=== PATIENT | female | born 1935 | race Caucasian/White ===

== ENCOUNTER → 2017-03-19 | Outpatient (CLI) | payer MEDICARE | END | disposition home or self-care (01) | LOC: CFH 11:59 → EDSTATUS 13:00 | PROVIDERS: ATTEND Internal Medicine Critical Care Medicine | DX: I25.10 Atherosclerotic heart disease of native coronary artery without angina pectoris (principal); I70.0 Atherosclerosis of aorta; R91.8 Other nonspecific abnormal finding of lung field | CPT/HCPCS: 71250 ==

== ENCOUNTER → 2017-08-31 | Outpatient (CLI) | payer MEDICARE | END | disposition home or self-care (01) | LOC: CFH 12:36 | PROVIDERS: ATTEND Psychiatry & Neurology Neurology | DX: G31.89 Other specified degenerative diseases of nervous system (principal); I67.89 Other cerebrovascular disease | CPT/HCPCS: 70551 ==

== ENCOUNTER 2018-03-30 19:24 | Emergency (ER) | payer MEDICARE ==
[~2018-03-30] VITALS: Ht 154.9 cm; Wt 48.5 kg
[2018-03-30] MEDS ORDERED: ALBUTEROL SULFATE 2.5 MG/3 ML ONE (19:44)
[2018-03-30 20:05] LABS: BASOPHILS # (AUTO) 0.01 x10^3/uL (0-0.1); BASOPHILS % (AUTO) 0 % (0-1); EOSINOPHILS # (AUTO) 0.76 x10^3/uL (0-0.4); EOSINOPHILS % (AUTO) 9 % (1-7); LYMPHOCYTES # (AUTO) 0.91 x10^3/uL (1-3.4); LYMPHOCYTES % (AUTO) 10 % (22-44); MD NO; MEAN CORPUSCULAR HEMOGLOBIN 30.2 pg (27.0-34.8); MEAN CORPUSCULAR HGB CONC 33.9 g/dL (32.4-35.8); MEAN CORPUSCULAR VOLUME 89.2 fL (80-100); MEAN PLATELET VOLUME 9.1 fL (7.4-10.4); MONOCYTES # (AUTO) 0.56 x10^3/uL (0.2-0.8); MONOCYTES % (AUTO) 7 % (2-9); NEUTROPHILS % (AUTO) 74 % (42-75); PLATELET COUNT 322 x10^3/uL (130-400); RED BLOOD COUNT 5.48 x10^6/uL (3.82-5.3); RED CELL DISTRIBUTION WIDTH 13.7 % (9.6-15.2)
[2018-03-30 20:13] LABS: ANION GAP 7 mmol/L (5-15); CALCIUM 9.4 mg/dL (8.5-10.1); CHLORIDE 110 mmol/L (98-107)
[2018-03-30 20:14] LABS: ALANINE AMINOTRANSFERASE 22 U/L (12-78); ALBUMIN 3.9 g/dL (3.4-5.0)
[2018-03-30 20:17] LABS: ALKALINE PHOSPHATASE 147 U/L (45-117); BILIRUBIN,TOTAL 0.3 mg/dL (0.2-1.0); TOTAL PROTEIN 8.1 g/dL (6.4-8.2); TROPONIN I < 0.015 ng/mL (0.000-0.045)
[2018-03-30 21:35] VITALS: BP 176/80
== END 2018-03-30 21:56 | disposition home or self-care (01) ==
LOC: ED 21:49
DX: J45.31 Mild persistent asthma with (acute) exacerbation (principal)
CPT/HCPCS: 36415; 71046; 80053; 83880; 84484; 85025; 93005; 94640; 99285

== ENCOUNTER 2018-11-27 20:27 | Emergency (ER) | payer MEDICARE ==
[~2018-11-27] VITALS: Ht 154.9 cm; Wt 49.0 kg
--- NOTE | 2018-11-27 21:06 | NUR ---
ASTHMA EXACERBATION X 4 DAYS WORSE TODAY. MONITORS APPLIED, SIDERAILS UP X2, CALL LIGHT WITHIN REACH.
[2018-11-27] MEDS ORDERED: OMEP-110 PO (21:25)
[2018-11-27] MEDS ORDERED: ENAL10TA PO (21:25)
[2018-11-27] MEDS ORDERED: ALBU0.63 NEB (21:25)
[2018-11-27] MEDS ORDERED: FLUT9.9S NAS (21:25)
[2018-11-27] MEDS ORDERED: ALBU8.5H8 INH (21:25)
[2018-11-27] MEDS ORDERED: BUDE10.2 INH (21:25)
[2018-11-27] MEDS ORDERED: ALBUTEROL/IPRATROPIUM 2.5MG/0.5MG, 3 ML ONE (21:30)
[2018-11-27] MEDS ORDERED: ALBUTEROL/IPRATROPIUM 2.5MG/0.5MG, 3 ML NPPB ONE (21:30)
[2018-11-27 21:32] LABS: BASOPHILS # (AUTO) 0.02 x10^3/uL (0-0.1); BASOPHILS % (AUTO) 0 % (0-1); EOSINOPHILS # (AUTO) 0.03 x10^3/uL (0-0.4); EOSINOPHILS % (AUTO) 0 % (1-7); LYMPHOCYTES # (AUTO) 0.52 x10^3/uL (1-3.4); LYMPHOCYTES % (AUTO) 7 % (22-44); MD NO; MEAN CORPUSCULAR HEMOGLOBIN 30.2 pg (27.0-34.8); MEAN CORPUSCULAR HGB CONC 33.8 g/dL (32.4-35.8); MEAN CORPUSCULAR VOLUME 89.2 fL (80-100); MEAN PLATELET VOLUME 8.8 fL (7.4-10.4); MONOCYTES # (AUTO) 0.16 x10^3/uL (0.2-0.8); MONOCYTES % (AUTO) 2 % (2-9); NEUTROPHILS % (AUTO) 91 % (42-75); PLATELET COUNT 278 x10^3/uL (130-400); RED BLOOD COUNT 5.04 x10^6/uL (3.82-5.3); RED CELL DISTRIBUTION WIDTH 13.5 % (9.6-15.2)
[2018-11-27 21:33] LABS: RAPID INFLUENZA A Negative (Negative); RAPID INFLUENZA B Negative (Negative)
[2018-11-27 21:45] LABS: ALBUMIN 3.9 g/dL (3.4-5.0); ANION GAP 7 mmol/L (5-15); CALCIUM 9.4 mg/dL (8.5-10.1); CHLORIDE 107 mmol/L (98-107); CREATININE 1.45 mg/dL (0.55-1.02)
[2018-11-27 21:48] LABS: TROPONIN I < 0.015 ng/mL (0.000-0.045)
--- NOTE | 2018-11-27 21:57 | NUR ---
URINE SAMPLE TAKEN TO LAB
[2018-11-27 22:06] LABS: MICROSCOPIC AUTO
[2018-11-27 22:08] LABS: CULTURE INDICATED? YES
[2018-11-27] MEDS ORDERED: BUDESONIDE 0.5 MG/2 ML INHA INH ONE (22:30)
[2018-11-27] MEDS ORDERED: ALBUTEROL SULFATE 2.5MG/0.5ML NPPB ONE (22:30)
[2018-11-27] MEDS ORDERED: ALBUTEROL SULFATE 2.5MG/0.5ML ONE (22:39)
[2018-11-27] MEDS ORDERED: BUDESONIDE 0.5 MG/2 ML INHA ONE (22:39)
[2018-11-27 23:15] VITALS: BP 124/79
[2018-11-30] MEDS ORDERED: PRED5TAB PO (14:03)
[2018-11-30] MEDS ORDERED: CEFU500T50 PO (14:03)
[2018-11-30] MEDS ORDERED: IPRA3AMP30 NPPB (14:03)
== END 2018-11-27 23:36 | disposition home or self-care (01) ==
LOC: ED 23:27
DX: J45.51 Severe persistent asthma with (acute) exacerbation (principal)
CPT/HCPCS: 36415; 71046; 80048; 81001; 82040; 84484; 85025; 87077; 87086; 87186; 87400; 93005; 94640; 99284; J7512; J7611; J7620; J7626

== ENCOUNTER 2019-02-20 09:04 | Inpatient (IN) | payer MEDICARE ==
[~2019-02-20] VITALS: Ht 154.9 cm; Wt 51.0 kg
[~2019-02-20 09:04] MED LIST: ALBU0.63 NEB; ALBU8.5H8 INH; BUDE10.2 INH; CEFU500T50 PO; ENAL10TA PO; FLUT9.9S NAS; IPRA3AMP30 NPPB; OMEP-110 PO; PRED5TAB PO
--- NOTE | 2019-02-20 09:15 | NUR ---
PT ARRIVED TO ROOM 16 VIA WHEELCHAIR FROM TRIAGE. PT C/O INTERMITTENT SOB SINCE YESTERDAY, RECENT ADMIT FOR ASTHMA EXAC, + AUDIBLE EXPIR WHEEZING NOTED, +STEROIDS. PT STATES SHE WAS DISCAHRGED FROM HOSPITAL IN NOVEMBER ON NEW MEDICATIONS AND STATES SHE HAS BEEN FEELING DIZZY LATELY. PT AAO X 4, VSS, DRESSED IN GOWN AND ATTACHED TO MONITOR. RESTING COMFORTABLY ON GURNEY, ROOM AIR BUT AUDIBLE EXPIRATORY WHEEZING. CALL LIGHT AND BELONGINGS WITHIN REACH, SIDERAILS X [address], FALL PRECUATIONS IN PLACE.
[2019-02-20 09:33] LABS: BASOPHILS # (AUTO) 0.03 x10^3/uL (0-0.1); BASOPHILS % (AUTO) 0 % (0-1); EOSINOPHILS # (AUTO) 1.08 x10^3/uL (0-0.4); EOSINOPHILS % (AUTO) 12 % (1-7); LYMPHOCYTES # (AUTO) 0.82 x10^3/uL (1-3.4); LYMPHOCYTES % (AUTO) 9 % (22-44); MD NO; MEAN CORPUSCULAR HEMOGLOBIN 30.4 pg (27.0-34.8); MEAN CORPUSCULAR HGB CONC 33.3 g/dL (32.4-35.8); MEAN CORPUSCULAR VOLUME 91.3 fL (80-100); MEAN PLATELET VOLUME 8.7 fL (7.4-10.4); MONOCYTES # (AUTO) 0.49 x10^3/uL (0.2-0.8); MONOCYTES % (AUTO) 6 % (2-9); NEUTROPHILS # (AUTO) 6.43 x10^3/uL (1.8-6.8); NEUTROPHILS % (AUTO) 73 % (42-75); PLATELET COUNT 288 x10^3/uL (130-400); RED BLOOD COUNT 5.12 x10^6/uL (3.82-5.3); RED CELL DISTRIBUTION WIDTH 13.9 % (9.6-15.2)
[2019-02-20 09:45] LABS: ALBUMIN 3.8 g/dL (3.4-5.0); ANION GAP 4 mmol/L (5-15); CALCIUM 9.3 mg/dL (8.5-10.1); CHLORIDE 111 mmol/L (98-107); CREATININE 0.97 mg/dL (0.55-1.02)
[2019-02-20] MEDS ORDERED: ALBUTEROL/IPRATROPIUM 2.5MG/0.5MG, 3 ML ONE (09:48)
--- NOTE | 2019-02-20 09:55 | NUR ---
RT AT BEDSIDE FOR BREATHING TX.
[2019-02-20] MEDS ORDERED: ALBUTEROL/IPRATROPIUM 2.5MG/0.5MG, 3 ML NPPB ONE (10:00)
--- NOTE | 2019-02-20 10:18 | NUR ---
PT AMBULATED TO BATHROOM WITH ASSISTANCE. PT SOB WITH EXERTION WITH EXTENDED EXPIRATORY PHASE AND [place]. PT WOB IMPROVED AFTER RESTING IN GURNEY
--- NOTE | 2019-02-20 10:20 | NUR ---
PT TO CT.
[2019-02-20] MEDS ORDERED: OMNIPAQUE 350 MG/ML, 75ML BOTTLE ONE (10:38)
--- NOTE | 2019-02-20 10:51 | NUR ---
PT SLEEPING ON GURNEY, CALL LIGHT WITHIN REACH
[2019-02-20] MEDS ORDERED: BACITRACIN ZINC OINT 500U/GM, 0.9 GM ONE (10:58)
[2019-02-20] MEDS ORDERED: CEFTRIAXONE PMX 1GM/50ML 50 ML IV ONE (11:30)
[2019-02-20] MEDS ORDERED: AZITHROMYCIN 500 MG in SODIUM CHLORIDE 0.9% 250 ML IV ONE (11:30)
[2019-02-20] MEDS ORDERED: CEFTRIAXONE PMX 1GM/50ML 50 ML ONE (11:33)
--- NOTE | 2019-02-20 11:40 | NUR ---
BLOOD CULTURES X 2 DRAWN BY LAB AND [place] PLACED ON PT. ABX ADMINISTERED PER NOV.
--- NOTE | 2019-02-20 12:04 | NUR ---
PT RESTING IN [facility]. ALL NEEDS MET.
--- NOTE | 2019-02-20 12:16 | NUR ---
REPORT GIVEN TO FLOOR RN. PT TO TRANSFER TO INPATIENT ROOM WITH CHART AND ALL BELONGINGS.
[2019-02-20] MEDS ORDERED: ONDANSETRON 2MG/ML, 2ML IVPush PRN (12:30)
[2019-02-20] MEDS ORDERED: ACETAMINOPHEN 325 MG TABLET PO PRN (12:30)
[2019-02-20] MEDS ORDERED: ENALAPRILAT 1.25 MG/ML, 2ML IVPush PRN (12:30)
[2019-02-20] MEDS ORDERED: ALBUTEROL/IPRATROPIUM 2.5MG/0.5MG, 3 ML NPPB SCH (12:30)
[2019-02-20] MEDS ORDERED: KETOROLAC 30 MG/1 ML IV PRN (12:30)
[2019-02-20 13:23] LABS: ALANINE AMINOTRANSFERASE 27 U/L (12-78)
[2019-02-20 13:24] LABS: ALKALINE PHOSPHATASE 135 U/L (45-117); BILIRUBIN,TOTAL 0.4 mg/dL (0.2-1.0); TOTAL PROTEIN 7.6 g/dL (6.4-8.2)
[2019-02-20 13:26] LABS: BILIRUBIN, DIRECT < 0.1 mg/dL (0.1-0.2); BILIRUBIN,INDIRECT 0.3 mg/dL (0.0-2.0)
[2019-02-20] MEDS: ALBUTEROL/IPRATROPIUM 2.5MG/0.5MG, 3 ML NPPB SCH ×3 (14:40→22:30)
[2019-02-20] MEDS: AMLODIPINE 2.5 MG TABLET PO SCH (15:46)
[2019-02-20 19:01] VITALS: BP 159/105
[2019-02-20 19:15] VITALS: BP 160/100
[2019-02-20] MEDS: hydrALAzine 20 MG/ML, 1ML IVPush PRN (19:23)
[2019-02-20 19:55] VITALS: BP 156/91
[2019-02-20] MEDS ORDERED: BUDESONIDE 0.5 MG/2 ML INHA NPPB SCH (21:00)
[2019-02-20] MEDS: ENALAPRIL 10 MG TABLET PO SCH (21:26)
[2019-02-20] MEDS: ENOXAPARIN 30 MG/0.3 ML SQ SCH (21:26)
[2019-02-20] MEDS: LACTULOSE 20 GM/30 ML UDC PO SCH (21:26)
[2019-02-20 22:15] VITALS: BP 107/66
[2019-02-21 01:21] VITALS: BP 113/72
[2019-02-21] MEDS: ALBUTEROL/IPRATROPIUM 2.5MG/0.5MG, 3 ML NPPB SCH ×5 (02:45→19:27)
[2019-02-21 05:09] LABS: BASOPHILS # (AUTO) 0.03 x10^3/uL (0-0.1); BASOPHILS % (AUTO) 0 % (0-1); EOSINOPHILS # (AUTO) 0.99 x10^3/uL (0-0.4); EOSINOPHILS % (AUTO) 12 % (1-7); LYMPHOCYTES # (AUTO) 1.13 x10^3/uL (1-3.4); LYMPHOCYTES % (AUTO) 14 % (22-44); MD NO; MEAN CORPUSCULAR HEMOGLOBIN 29.6 pg (27.0-34.8); MEAN CORPUSCULAR HGB CONC 32.7 g/dL (32.4-35.8); MEAN CORPUSCULAR VOLUME 90.4 fL (80-100); MEAN PLATELET VOLUME 8.6 fL (7.4-10.4); MONOCYTES % (AUTO) 6 % (2-9); NEUTROPHILS # (AUTO) 5.31 x10^3/uL (1.8-6.8); NEUTROPHILS % (AUTO) 67 % (42-75); PLATELET COUNT 253 x10^3/uL (130-400); RED BLOOD COUNT 4.92 x10^6/uL (3.82-5.3); RED CELL DISTRIBUTION WIDTH 13.8 % (9.6-15.2)
[2019-02-21 05:29] LABS: ANION GAP 8 mmol/L (5-15); CHLORIDE 108 mmol/L (98-107)
[2019-02-21 05:30] LABS: CREATININE 0.99 mg/dL (0.55-1.02)
[2019-02-21 06:44] VITALS: BP 121/72
[2019-02-21] MEDS: BUDESONIDE 0.5 MG/2 ML INHA NPPB SCH (07:05)
[2019-02-21] MEDS: LACTULOSE 20 GM/30 ML UDC PO SCH ×2 (08:34→20:48)
[2019-02-21] MEDS: AMLODIPINE 2.5 MG TABLET PO SCH (08:35)
[2019-02-21] MEDS: OMEPRAZOLE 20 MG CAPSULE.DR PO SCH (08:35)
[2019-02-21] MEDS: SENNA/DOCUSATE TABLET PO SCH (08:36)
[2019-02-21] MEDS: ENALAPRIL 10 MG TABLET PO SCH (08:36)
[2019-02-21] MEDS: ENOXAPARIN 30 MG/0.3 ML SQ SCH ×2 (08:37→20:48)
[2019-02-21] MEDS: FLUTICASONE NASAL SPRAY 16GM NAS SCH (10:18)
[2019-02-21] MEDS: CEFTRIAXONE PMX 1GM/50ML 50 ML IV SCH ×2 (11:21→12:25)
[2019-02-21] MEDS ORDERED: POLYETHYLENE GLYCOL 17 GM PACKET PO PRN (11:30)
[2019-02-21] MEDS: AZITHROMYCIN 500 MG in SODIUM CHLORIDE 0.9% 250 ML IV SCH (13:52)
[2019-02-21 15:28] VITALS: BP 103/67
[2019-02-21 18:36] VITALS: BP 129/78
[2019-02-22 00:22] VITALS: BP 126/70
[2019-02-22 07:06] VITALS: BP 138/79
[2019-02-22] MEDS: AMLODIPINE 2.5 MG TABLET PO SCH (08:46)
[2019-02-22] MEDS: OMEPRAZOLE 20 MG CAPSULE.DR PO SCH (08:46)
[2019-02-22] MEDS: ENOXAPARIN 30 MG/0.3 ML SQ SCH ×2 (08:46→20:15)
[2019-02-22] MEDS: FLUTICASONE NASAL SPRAY 16GM NAS SCH (08:46)
[2019-02-22] MEDS: LACTULOSE 20 GM/30 ML UDC PO SCH ×2 (08:47→21:00)
[2019-02-22] MEDS: SENNA/DOCUSATE TABLET PO SCH (08:47)
[2019-02-22] MEDS: BUDESONIDE 0.5 MG/2 ML INHA NPPB SCH (09:55)
[2019-02-22] MEDS: ALBUTEROL/IPRATROPIUM 2.5MG/0.5MG, 3 ML NPPB SCH ×3 (09:55→20:19)
[2019-02-22] MEDS: CEFTRIAXONE PMX 1GM/50ML 50 ML IV SCH (11:41)
[2019-02-22 13:19] VITALS: BP 128/65
[2019-02-22] MEDS: AZITHROMYCIN 500 MG in SODIUM CHLORIDE 0.9% 250 ML IV SCH (14:15)
[2019-02-22 19:17] VITALS: BP 158/78
[2019-02-23 00:39] VITALS: BP 133/70
[2019-02-23] MEDS: ALBUTEROL/IPRATROPIUM 2.5MG/0.5MG, 3 ML NPPB SCH ×5 (02:14→23:10)
[2019-02-23] MEDS: BUDESONIDE 0.5 MG/2 ML INHA NPPB SCH (07:05)
[2019-02-23 08:18] VITALS: BP 137/83
[2019-02-23] MEDS: SENNA/DOCUSATE TABLET PO SCH ×2 (09:00→10:05)
[2019-02-23] MEDS: OMEPRAZOLE 20 MG CAPSULE.DR PO SCH (10:04)
[2019-02-23] MEDS: ENOXAPARIN 30 MG/0.3 ML SQ SCH ×2 (10:04→20:54)
[2019-02-23] MEDS: FLUTICASONE NASAL SPRAY 16GM NAS SCH (10:04)
[2019-02-23] MEDS: LACTULOSE 20 GM/30 ML UDC PO SCH ×2 (10:05→20:54)
[2019-02-23] MEDS: AMLODIPINE 2.5 MG TABLET PO SCH (10:08)
[2019-02-23] MEDS: AZITHROMYCIN 500 MG in SODIUM CHLORIDE 0.9% 250 ML IV SCH ×2 (12:11→14:45)
[2019-02-23] MEDS: CEFTRIAXONE PMX 1GM/50ML 50 ML IV SCH (12:18)
[2019-02-23 14:05] VITALS: BP 169/103
[2019-02-23] MEDS ORDERED: ALBUTEROL/IPRATROPIUM 2.5MG/0.5MG, 3 ML NPPB PRN (14:30)
[2019-02-23 15:30] VITALS: BP 171/99
[2019-02-23] MEDS: hydrALAzine 20 MG/ML, 1ML IVPush PRN (15:40)
[2019-02-23] MEDS: methylPREDNISolone SOD SUCC 125 MG/2 ML IVPush SCH ×2 (15:40→20:55)
[2019-02-23 19:05] VITALS: BP 163/102
[2019-02-24 00:42] VITALS: BP 164/83
[2019-02-24] MEDS: methylPREDNISolone SOD SUCC 125 MG/2 ML IVPush SCH ×3 (03:48→15:00)
[2019-02-24 06:53] VITALS: BP 170/103
[2019-02-24] MEDS: ALBUTEROL/IPRATROPIUM 2.5MG/0.5MG, 3 ML NPPB SCH ×3 (07:01→13:59)
[2019-02-24 07:30] VITALS: BP 155/101
[2019-02-24] MEDS: hydrALAzine 20 MG/ML, 1ML IVPush PRN (07:30)
[2019-02-24] MEDS: SENNA/DOCUSATE TABLET PO SCH (09:00)
[2019-02-24] MEDS: BUDESONIDE 0.5 MG/2 ML INHA NPPB SCH (09:00)
[2019-02-24] MEDS: ENOXAPARIN 30 MG/0.3 ML SQ SCH (09:49)
[2019-02-24] MEDS: OMEPRAZOLE 20 MG CAPSULE.DR PO SCH (09:50)
[2019-02-24] MEDS: FLUTICASONE NASAL SPRAY 16GM NAS SCH (09:50)
[2019-02-24] MEDS: LACTULOSE 20 GM/30 ML UDC PO SCH (09:50)
[2019-02-24] MEDS: AMLODIPINE 2.5 MG TABLET PO SCH (09:50)
[2019-02-24] MEDS: CEFTRIAXONE PMX 1GM/50ML 50 ML IV SCH (12:14)
[2019-02-24 14:21] VITALS: BP 146/78
[2019-02-24] MEDS ORDERED: AZIT500T5 PO (15:07)
[2019-02-24] MEDS ORDERED: IPRA3AMP30 NPPB (15:07)
[2019-02-24] MEDS ORDERED: PRED5TAB PO (15:07)
[2019-02-24] MEDS ORDERED: CEFD300C37 PO (15:07)
== END 2019-02-24 16:30 | disposition home or self-care (01) | DRG 178 ==
LOC: ED 09:54 → EDIP 11:26 → 3NE 12:23 → DCLOUNGE 02-24 16:19
PROVIDERS: ADMIT Internal Medicine; ATTEND Internal Medicine
DX: J15.6 Pneumonia due to other Gram-negative bacteria (principal); J44.0 Chronic obstructive pulmonary disease with (acute) lower respiratory infection; J44.1 Chronic obstructive pulmonary disease with (acute) exacerbation; K21.9 Gastro-esophageal reflux disease without esophagitis; I10 Essential (primary) hypertension; Z80.0 Family history of malignant neoplasm of digestive organs; Z90.710 Acquired absence of both cervix and uterus
CPT/HCPCS: 36415; 71046; 71260; 74018; 76700; 80048; 80076; 82040; 85025; 87040; 93005; 94640; 94667; 96374; 96375; 99285; G0378; J0456; J0696; J1650; J7620; J7626; Q9967; J0360; J2930; J7050; J7512

== ENCOUNTER 2019-03-24 09:22 | Inpatient (IN) | payer MEDICARE ==
[~2019-03-24] VITALS: Ht 154.9 cm; Wt 52.0 kg
[~2019-03-24 09:22] MED LIST changes: +AZIT500T5 PO; +CEFD300C37 PO
[2019-03-24] MEDS ORDERED: methylPREDNISolone SOD SUCC 125 MG/2 ML ONE (10:18)
[2019-03-24] MEDS ORDERED: methylPREDNISolone SOD SUCC 125 MG/2 ML IVP ONE (10:30)
[2019-03-24] MEDS ORDERED: ALBUTEROL/IPRATROPIUM 2.5MG/0.5MG, 3 ML ONE (10:32)
--- NOTE | 2019-03-24 10:37 | NUR ---
PT RESTING IN GURNEY WITH DAUGHTER AT BEDSIDE, BREATHING LABORED, RT AT BEDSIDE FOR TREATMENT. LABS DRAWN AND PT MEDICATED PER NOV. CALL LIGHT WITHIN REACH
[2019-03-24] MEDS: ALBUTEROL/IPRATROPIUM 2.5MG/0.5MG, 3 ML NPPB SCH ×5 (10:40→22:25)
[2019-03-24 10:56] LABS: BASOPHILS % (AUTO) 0 % (0-1); EOSINOPHILS # (AUTO) 0.44 x10^3/uL (0-0.4); EOSINOPHILS % (AUTO) 7 % (1-7); LYMPHOCYTES # (AUTO) 0.68 x10^3/uL (1-3.4); LYMPHOCYTES % (AUTO) 11 % (22-44); MD NO; MEAN CORPUSCULAR HEMOGLOBIN 30.4 pg (27.0-34.8); MEAN CORPUSCULAR HGB CONC 33.6 g/dL (32.4-35.8); MEAN CORPUSCULAR VOLUME 90.4 fL (80-100); MEAN PLATELET VOLUME 8.2 fL (7.4-10.4); MONOCYTES # (AUTO) 0.32 x10^3/uL (0.2-0.8); MONOCYTES % (AUTO) 5 % (2-9); NEUTROPHILS # (AUTO) 4.88 x10^3/uL (1.8-6.8); NEUTROPHILS % (AUTO) 77 % (42-75); PLATELET COUNT 327 x10^3/uL (130-400); RED BLOOD COUNT 4.67 x10^6/uL (3.82-5.3); RED CELL DISTRIBUTION WIDTH 14.1 % (9.6-15.2)
[2019-03-24 11:05] LABS: ALBUMIN 3.8 g/dL (3.4-5.0); ANION GAP 7 mmol/L (5-15); CALCIUM 9.1 mg/dL (8.5-10.1); CHLORIDE 111 mmol/L (98-107); CREATININE 0.83 mg/dL (0.55-1.02)
--- NOTE | 2019-03-24 11:22 | NUR ---
PT ASSISTED TO BEDSIDE COMMODE, PT STILL SOB AND LABORED BREATHING. PT BACK TO BED. PT UP FOR RECHECK. NO NEEDS AT THIS TIME, CALL LIGHT WITHIN REACH
--- NOTE | 2019-03-24 12:25 | NUR ---
AT BEDSIDE TO UPDATE PT ON POC, PT TO BE ADMITTED
--- NOTE | 2019-03-24 12:54 | NUR ---
REPORT RECEIVED FROM DOTTIE LEAL. ASSUMED CARE OF PT.
--- NOTE | 2019-03-24 13:30 | NUR ---
PT UP TO RESTROOM AT THIS TIME. STEADY UPON TRANSFER FROM GURNEY TO WHEELCHAIR AND WHEELCHAIR TO TOILET. PT AO X 4. SKIN PWD. RESP SLIGHTLY RAPID AND SHALLOW AT 22RR. PT ABLE TO SPEAK IN 5-7 WORD SENTENCES BEFORE BECOMING SHORT OF BREATH. FAMILY MEMBER AT BEDSIDE. PT ON CONT BP AND O2 MONITORS. CALL LIGHT WITHIN REACH.
--- NOTE | 2019-03-24 13:41 | NUR ---
REPORT TO DOTTIE MAYA ON MED/TELE.
--- NOTE | 2019-03-24 14:27 | NUR ---
RT AT BEDSIDE FOR BREATHING TRX. PT AWARE WE ARE WAITING FOR TRANSPORT UPSTAIRS.
[2019-03-24] MEDS ORDERED: NS + 20MEQ KCL 1,000 ML IV SCH (14:30)
[2019-03-24] MEDS ORDERED: LABETALOL 5MG/ML, 20ML IVPush PRN (14:30)
[2019-03-24] MEDS ORDERED: BISACODYL 10 MG SUPP PR PRN (14:30)
[2019-03-24] MEDS ORDERED: ONDANSETRON ODT 4 MG PO PRN (14:30)
[2019-03-24] MEDS ORDERED: DOCUSATE 100 MG CAPSULE PO PRN (14:30)
[2019-03-24] MEDS ORDERED: ONDANSETRON 2MG/ML, 2ML IVPush PRN (14:30)
[2019-03-24] MEDS ORDERED: ENALAPRILAT 1.25 MG/ML, 2ML IVPush PRN (14:30)
[2019-03-24] MEDS ORDERED: POLYETHYLENE GLYCOL 17 GM PACKET PO PRN (14:30)
[2019-03-24] MEDS ORDERED: GUAIFENESIN/DM 200-20MG, 10ML UDC PO PRN (14:30)
[2019-03-24] MEDS ORDERED: ACETAMINOPHEN 325 MG TABLET PO PRN (14:30)
[2019-03-24] MEDS: AMLODIPINE 5 MG TABLET PO SCH (15:51)
[2019-03-24] MEDS: ENOXAPARIN 40 MG/0.4 ML SQ SCH (15:51)
[2019-03-24] MEDS: methylPREDNISolone SOD SUCC 125 MG/2 ML IVPush SCH ×2 (16:32→22:41)
[2019-03-24] MEDS ORDERED: FLUT1AER INH (17:18)
[2019-03-24] MEDS ORDERED: AMLO10TA8 PO (17:18)
[2019-03-24] MEDS ORDERED: CALC-112 PO (17:18)
[2019-03-24] MEDS ORDERED: ALBUTEROL/IPRATROPIUM 2.5MG/0.5MG, 3 ML NPPB SCH (18:00)
[2019-03-24 19:18] VITALS: BP 161/86
[2019-03-24] MEDS: BUDESONIDE 0.5 MG/2 ML INHA INH SCH (21:00)
[2019-03-24] MEDS: OMEPRAZOLE 20 MG CAPSULE.DR PO SCH (21:45)
[2019-03-25 01:08] VITALS: BP 115/59
[2019-03-25] MEDS: ALBUTEROL/IPRATROPIUM 2.5MG/0.5MG, 3 ML NPPB SCH ×6 (02:36→22:44)
[2019-03-25] MEDS: methylPREDNISolone SOD SUCC 125 MG/2 ML IVPush SCH ×2 (04:26→10:20)
[2019-03-25 05:59] LABS: ANION GAP 7 mmol/L (5-15); BASOPHILS % (AUTO) 0 % (0-1); CALCIUM 8.8 mg/dL (8.5-10.1); CHLORIDE 114 mmol/L (98-107); EOSINOPHILS % (AUTO) 0 % (1-7); LYMPHOCYTES % (AUTO) 8 % (22-44); MD NO; MEAN CORPUSCULAR HEMOGLOBIN 29.6 pg (27.0-34.8); MEAN CORPUSCULAR HGB CONC 32.8 g/dL (32.4-35.8); MEAN CORPUSCULAR VOLUME 90.1 fL (80-100); MEAN PLATELET VOLUME 8.1 fL (7.4-10.4); MONOCYTES # (AUTO) 0.07 x10^3/uL (0.2-0.8); MONOCYTES % (AUTO) 1 % (2-9); NEUTROPHILS # (AUTO) 6.04 x10^3/uL (1.8-6.8); NEUTROPHILS % (AUTO) 91 % (42-75); PLATELET COUNT 318 x10^3/uL (130-400); RED BLOOD COUNT 4.56 x10^6/uL (3.82-5.3); RED CELL DISTRIBUTION WIDTH 13.8 % (9.6-15.2)
[2019-03-25] MEDS: BUDESONIDE 0.5 MG/2 ML INHA INH SCH ×2 (08:23→18:31)
[2019-03-25] MEDS ORDERED: ALBUTEROL/IPRATROPIUM 2.5MG/0.5MG, 3 ML NPPB PRN (08:30)
[2019-03-25 09:30] VITALS: BP 166/97
[2019-03-25] MEDS: AMLODIPINE 5 MG TABLET PO SCH ×2 (09:31→21:44)
[2019-03-25] MEDS: OMEPRAZOLE 20 MG CAPSULE.DR PO SCH ×2 (09:32→21:43)
[2019-03-25] MEDS: FLUTICASONE NASAL SPRAY 16GM NAS SCH (10:20)
[2019-03-25 13:42] VITALS: BP 172/80
[2019-03-25] MEDS: ENOXAPARIN 40 MG/0.4 ML SQ SCH (14:41)
[2019-03-25 21:47] VITALS: BP 159/91
[2019-03-25] MEDS ORDERED: methylPREDNISolone SOD SUCC 125 MG/2 ML IVPush SCH (22:30)
[2019-03-26 00:33] VITALS: BP 137/76
[2019-03-26] MEDS: ALBUTEROL/IPRATROPIUM 2.5MG/0.5MG, 3 ML NPPB SCH ×4 (03:15→13:40)
[2019-03-26] MEDS: BUDESONIDE 0.5 MG/2 ML INHA INH SCH (06:50)
[2019-03-26] MEDS: OMEPRAZOLE 20 MG CAPSULE.DR PO SCH (08:34)
[2019-03-26] MEDS: FLUTICASONE NASAL SPRAY 16GM NAS SCH (08:34)
[2019-03-26] MEDS: AMLODIPINE 5 MG TABLET PO SCH (08:34)
[2019-03-26 08:36] VITALS: BP 134/76
[2019-03-26] MEDS ORDERED: PRED20TA PO (12:13)
[2019-03-26 12:14] VITALS: BP 139/82
== END 2019-03-26 14:35 | disposition home or self-care (01) | DRG 189 ==
LOC: ED 10:16 → EDIP 13:24 → 4NOR 14:38
PROVIDERS: ADMIT Family Medicine; ATTEND Family Medicine
DX: J96.01 Acute respiratory failure with hypoxia (principal); J44.1 Chronic obstructive pulmonary disease with (acute) exacerbation; E87.6 Hypokalemia; F41.9 Anxiety disorder, unspecified; I10 Essential (primary) hypertension; I45.10 Unspecified right bundle-branch block; K21.9 Gastro-esophageal reflux disease without esophagitis; K59.00 Constipation, unspecified; Z79.52 Long term (current) use of systemic steroids; Z80.0 Family history of malignant neoplasm of digestive organs; Z87.01 Personal history of pneumonia (recurrent); Z90.710 Acquired absence of both cervix and uterus
CPT/HCPCS: 36415; 71045; 80048; 82040; 83605; 84145; 85025; 85379; 87040; 93005; 94640; 96374; 99285; G0378; J1650; J3480; J7620; J7626; J2930; J7512

== ENCOUNTER 2019-09-21 14:16 | Emergency (ER) | payer MEDICARE ==
[~2019-09-21] VITALS: Ht 154.9 cm; Wt 51.0 kg
[~2019-09-21 14:16] MED LIST changes: +AMLO10TA8 PO; +AZIT500T10 PO; -AZIT500T5 PO; +CALC-112 PO; +FLUT1AER INH; +PRED20TA PO
[2019-09-21] MEDS ORDERED: DIPH,PERTUSS(ACELL),TET VAC/PF 0.5 ML IM-VACC ONE ×2 (14:55→16:00)
[2019-09-21] MEDS ORDERED: CEFAZOLIN PMX 1GM/50ML 50 ML IVPB ONE (15:00)
[2019-09-21 15:12] LABS: BASOPHILS # (AUTO) 0.04 x10^3/uL (0-0.1); BASOPHILS % (AUTO) 0 % (0-1); EOSINOPHILS # (AUTO) 0.25 x10^3/uL (0-0.4); EOSINOPHILS % (AUTO) 3 % (1-7); LYMPHOCYTES # (AUTO) 0.78 x10^3/uL (1-3.4); LYMPHOCYTES % (AUTO) 8 % (22-44); MD NO; MEAN CORPUSCULAR VOLUME 87.9 fL (80-100); MEAN PLATELET VOLUME 8.5 fL (7.4-10.4); MONOCYTES # (AUTO) 0.37 x10^3/uL (0.2-0.8); MONOCYTES % (AUTO) 4 % (2-9); NEUTROPHILS # (AUTO) 8.32 x10^3/uL (1.8-6.8); NEUTROPHILS % (AUTO) 85 % (42-75); PLATELET COUNT 357 x10^3/uL (130-400); RED BLOOD COUNT 5.31 x10^6/uL (3.82-5.3); RED CELL DISTRIBUTION WIDTH 14.2 % (9.6-15.2)
[2019-09-21] MEDS ORDERED: NEOSPORIN OINT. PKT 1 PACKET ONE ×2 (15:17)
[2019-09-21] MEDS ORDERED: CEFAZOLIN PMX 1GM/50ML 50 ML ONE (15:19)
[2019-09-21 15:23] LABS: ALBUMIN 3.9 g/dL (3.4-5.0); ANION GAP 9 mmol/L (5-15); CALCIUM 9.5 mg/dL (8.5-10.1); CHLORIDE 107 mmol/L (98-107); CREATININE 1.02 mg/dL (0.55-1.02)
--- NOTE | 2019-09-21 15:27 | NUR ---
MEDS ADMIN PER NOV. TECHS AT BEDSIDE FOR WOUND CARE.
[2019-09-21 15:28] VITALS: BP 140/77
--- NOTE | 2019-09-21 15:50 | NUR ---
ALL RESULTS ARE BACK AT THIS TIME. IV ABX COMPLETED. CHART UP FOR RECHECK.
[2019-09-21] MEDS ORDERED: SODIUM CHLORIDE FLUSH 10ML SYR IVF ONE (16:00)
--- NOTE | 2019-09-21 16:41 | NUR ---
task rn: Patient/Caregiver given discharge instructions and they have confirmed that they understand the instructions. Patient ambulatory with steady gait using walker. pt using phone at discharge desk. pt left with all personal belongings.
== END 2019-09-21 16:45 | disposition home or self-care (01) ==
LOC: ED 16:20
DX: S81.802A Unspecified open wound, left lower leg, initial encounter (principal); L08.9 Local infection of the skin and subcutaneous tissue, unspecified; J44.9 Chronic obstructive pulmonary disease, unspecified; F17.200 Nicotine dependence, unspecified, uncomplicated; W19.XXXA Unspecified fall, initial encounter; Y93.89 Activity, other specified; Y92.098 Other place in other non-institutional residence as the place of occurrence of the external cause; Y99.8 Other external cause status
CPT/HCPCS: 36415; 73590; 80048; 82040; 85025; 90471; 90715; 96365; 99284; J0690

== ENCOUNTER → 2019-10-04 | Outpatient (CLI) | payer MEDICARE | END | disposition home or self-care (01) | LOC: CFH 10:45 | PROVIDERS: ATTEND Internal Medicine Critical Care Medicine | DX: K57.81 Diverticulitis of intestine, part unspecified, with perforation and abscess with bleeding (principal); J96.01 Acute respiratory failure with hypoxia; J45.909 Unspecified asthma, uncomplicated; K21.9 Gastro-esophageal reflux disease without esophagitis; M47.816 Spondylosis without myelopathy or radiculopathy, lumbar region; J84.10 Pulmonary fibrosis, unspecified; F32.9 Major depressive disorder, single episode, unspecified; Z79.899 Other long term (current) drug therapy | CPT/HCPCS: 71250; 74176 ==

== ENCOUNTER 2019-10-11 08:29 | Emergency (ER) | payer MEDICARE ==
[~2019-10-11] VITALS: Ht 154.9 cm; Wt 52.9 kg
[2019-10-11] MEDS ORDERED: ALBUTEROL/IPRATROPIUM 2.5MG/0.5MG, 3 ML ONE (09:09)
[2019-10-11] MEDS ORDERED: methylPREDNISolone SOD SUCC 125 MG/2 ML IV ONE (09:30)
[2019-10-11] MEDS ORDERED: ALBUTEROL/IPRATROPIUM 2.5MG/0.5MG, 3 ML NPPB ONE (09:30)
--- NOTE | 2019-10-11 09:30 | NUR ---
PT STATES SINCE YESTERDAY DIFFICULTY BREATHING AND STARTED FEELING WEAK TODAY. PT NOTED TO HAVE A WOUND ON LEFT LOWER EXTREMEITY. PT STATES SHE OBTAINED IT WHEN SHE FELL OFF CHAIR AND LEANED LEG AGAINST COUNTER TO SLOW DOWN FALL ON SEP 17. PT HAD BEEN ON ANTIBIOTICS FOR SAME AND COMPLETED THEM. RT GAVE PT TX AND XRAY AT BEDSIDE.
[2019-10-11 09:45] LABS: BASOPHILS # (AUTO) 0.05 x10^3/uL (0-0.1); BASOPHILS % (AUTO) 1 % (0-1); EOSINOPHILS # (AUTO) 0.79 x10^3/uL (0-0.4); EOSINOPHILS % (AUTO) 11 % (1-7); LYMPHOCYTES # (AUTO) 0.54 x10^3/uL (1-3.4); LYMPHOCYTES % (AUTO) 8 % (22-44); MD NO; MEAN CORPUSCULAR HEMOGLOBIN 29.2 pg (27.0-34.8); MEAN CORPUSCULAR HGB CONC 33.6 g/dL (32.4-35.8); MEAN CORPUSCULAR VOLUME 86.9 fL (80-100); MEAN PLATELET VOLUME 8.9 fL (7.4-10.4); MONOCYTES # (AUTO) 0.37 x10^3/uL (0.2-0.8); MONOCYTES % (AUTO) 5 % (2-9); NEUTROPHILS % (AUTO) 76 % (42-75); PLATELET COUNT 290 x10^3/uL (130-400); RED CELL DISTRIBUTION WIDTH 13.6 % (9.6-15.2)
[2019-10-11 09:47] LABS: RAPID INFLUENZA A Negative (Negative); RAPID INFLUENZA B Negative (Negative)
[2019-10-11 09:50] LABS: ALANINE AMINOTRANSFERASE 19 U/L (12-78); ALBUMIN 3.6 g/dL (3.4-5.0); ANION GAP 8 mmol/L (5-15); CALCIUM 9.2 mg/dL (8.5-10.1); CHLORIDE 106 mmol/L (98-107); CREATININE 1.03 mg/dL (0.55-1.02)
[2019-10-11] MEDS ORDERED: methylPREDNISolone SOD SUCC 125 MG/2 ML ONE ×2 (09:52→09:55)
[2019-10-11 09:54] LABS: ALKALINE PHOSPHATASE 137 U/L (45-117); BILIRUBIN,TOTAL 0.3 mg/dL (0.2-1.0); TOTAL PROTEIN 7.2 g/dL (6.4-8.2); TROPONIN I < 0.015 ng/mL (0.000-0.045)
[2019-10-11 10:00] VITALS: BP 154/79
--- NOTE | 2019-10-11 10:03 | NUR ---
MEDICATED NOTED ON NOV. PT STATES SHE IS BREATHING BETTER SINCE TREATMENT. DAUGHTER AT BEDSIDE.
[2019-10-11] MEDS ORDERED: SODIUM CHLORIDE FLUSH 10ML SYR IVF ONE (10:30)
[2019-10-11] MEDS ORDERED: NEOSPORIN OINT. PKT 1 PACKET ONE (10:41)
--- NOTE | 2019-10-11 10:50 | NUR ---
WOUND CLEANED WITH NORMAL SALINE AND BACITRACIN PLACED. WET TO DRY DRESSING PLACED ON WOUND. PT GIVEN DISCHARGE INSTRUCTIONS. TO DISCHARGE WINDOW VIA W/C
== END 2019-10-11 10:59 | disposition home or self-care (01) ==
LOC: ED 10:33
DX: J45.41 Moderate persistent asthma with (acute) exacerbation (principal); R06.00 Dyspnea, unspecified; L03.116 Cellulitis of left lower limb
CPT/HCPCS: 36415; 71045; 73590; 80053; 83880; 84484; 85025; 87400; 93005; 94640; 96374; 99284; J2930; J7620

== ENCOUNTER 2019-11-29 16:56 | Emergency (ER) | payer MEDICARE, OTHER ==
[~2019-11-29] VITALS: Ht 154.9 cm; Wt 52.1 kg
[2019-11-29] MEDS ORDERED: TIOT18CA INH (17:28)
[2019-11-29 17:58] VITALS: BP 142/70
[2019-11-29 18:17] LABS: BASOPHILS # (AUTO) 0.02 x10^3/uL (0-0.1); BASOPHILS % (AUTO) 0 % (0-1); EOSINOPHILS # (AUTO) 0.21 x10^3/uL (0-0.4); EOSINOPHILS % (AUTO) 2 % (1-7); LYMPHOCYTES # (AUTO) 0.63 x10^3/uL (1-3.4); LYMPHOCYTES % (AUTO) 7 % (22-44); MD NO; MEAN CORPUSCULAR HGB CONC 33.2 g/dL (32.4-35.8); MEAN CORPUSCULAR VOLUME 87.5 fL (80-100); MEAN PLATELET VOLUME 8.6 fL (7.4-10.4); MONOCYTES # (AUTO) 0.33 x10^3/uL (0.2-0.8); MONOCYTES % (AUTO) 4 % (2-9); NEUTROPHILS # (AUTO) 7.57 x10^3/uL (1.8-6.8); NEUTROPHILS % (AUTO) 86 % (42-75); PLATELET COUNT 308 x10^3/uL (130-400); RED BLOOD COUNT 5.19 x10^6/uL (3.82-5.3); RED CELL DISTRIBUTION WIDTH 13.7 % (9.6-15.2)
[2019-11-29 18:19] LABS: ALBUMIN 3.7 g/dL (3.4-5.0); ANION GAP 7 mmol/L (5-15); CALCIUM 9.6 mg/dL (8.5-10.1); CHLORIDE 107 mmol/L (98-107)
[2019-11-29 18:24] LABS: CREATININE 0.97 mg/dL (0.55-1.02); TROPONIN I < 0.015 ng/mL (0.000-0.045)
--- NOTE | 2019-11-29 19:10 | NUR ---
report to netta marcano rn. daughter called will pick out hand pt. as
== END 2019-11-29 19:24 ==
LOC: ED 17:34
DX: J44.1 Chronic obstructive pulmonary disease with (acute) exacerbation (principal); Z20.828 Contact with and (suspected) exposure to other viral communicable diseases; I10 Essential (primary) hypertension
CPT/HCPCS: 36415; 71045; 80048; 82040; 84484; 85025; 93005; 99285; J7512

== ENCOUNTER 2020-03-18 17:55 | Emergency (ER) | payer MEDICARE ==
[~2020-03-18] VITALS: Ht 154.9 cm; Wt 55.0 kg
[~2020-03-18 17:55] MED LIST changes: +TIOT18CA INH
[2020-03-18 18:05] VITALS: BP 139/76
[2020-03-18] MEDS ORDERED: HYDROcodone/APAP 5/325 TABLET ONE ×2 (18:40→18:44)
[2020-03-18] MEDS ORDERED: HYDROcodone/APAP 5/325 TABLET PO ONE (19:00)
[2020-03-18] MEDS ORDERED: BUPIVACAINE 0.25% ONE (19:18)
[2020-03-18] MEDS ORDERED: LIDOCAINE-MPF 1%, 5ML ONE (19:18)
[2020-03-18] MEDS ORDERED: LIDOCAINE 2%, 10ML INFIL ONE (19:30)
[2020-03-18] MEDS ORDERED: BUPIVACAINE/PF 0.5% INFIL ONE (19:30)
--- NOTE | 2020-03-18 20:54 | NUR ---
PT RESTING IN BED, DAUGHTER AT BEDSIDE. DENIES ANY CURRENT NEEDS OR CONCERNS, CALL LIGHT IN REACH.
== END 2020-03-18 22:25 | disposition home or self-care (01) ==
LOC: ED 18:25
DX: S52.591A Other fractures of lower end of right radius, initial encounter for closed fracture (principal); J44.9 Chronic obstructive pulmonary disease, unspecified; W18.30XA Fall on same level, unspecified, initial encounter; Y93.89 Activity, other specified; Y92.009 Unspecified place in unspecified non-institutional (private) residence as the place of occurrence of the external cause; Y99.8 Other external cause status
CPT/HCPCS: 25605; 36415; 87635; 99284

== ENCOUNTER 2020-03-23 14:44 | Emergency (ER) | payer MEDICARE, OTHER ==
[~2020-03-23] VITALS: Ht 154.9 cm; Wt 53.6 kg
[~2020-03-23 14:44] MED LIST changes: -ENAL10TA PO; +ENAL10TA9 PO
[2020-03-23] MEDS ORDERED: OXYcodone/APAP 5/325MG TABLET PO ONE (16:00)
[2020-03-23] MEDS ORDERED: OXYcodone/APAP 5/325MG TABLET ONE (16:12)
--- NOTE | 2020-03-23 16:18 | NUR ---
ZOË RENEE PRIVIDED, AND MEDICATED ORDERED.
--- NOTE | 2020-03-23 16:26 | NUR ---
Ultra sound at bedside.
--- NOTE | 2020-03-23 16:59 | NUR ---
Ambulated patient to bathroom, steady gait. Patient back to bed, repositioned and ice pack applied to right arm. No further needs at this time.
--- NOTE | 2020-03-23 17:40 | NUR ---
ER CUTLERY GRINDER TIFFANIE AT BEDSIDE TO DISCUSS POC
[2020-03-23 17:44] VITALS: BP 146/72
== END 2020-03-23 18:28 | disposition home or self-care (01) ==
LOC: ED 16:20
DX: S52.591A Other fractures of lower end of right radius, initial encounter for closed fracture (principal); S50.11XA Contusion of right forearm, initial encounter; M25.531 Pain in right wrist; M79.661 Pain in right lower leg; J44.9 Chronic obstructive pulmonary disease, unspecified; W18.30XA Fall on same level, unspecified, initial encounter; Y93.89 Activity, other specified; Y92.89 Other specified places as the place of occurrence of the external cause; Y99.8 Other external cause status
CPT/HCPCS: 99284

== ENCOUNTER 2020-03-25 07:08 | Day surgery (SDC) | payer MEDICARE, OTHER ==
[~2020-03-25] VITALS: Ht 154.9 cm; Wt 53.7 kg
[~2020-03-25 07:08] MED LIST changes: +ENAL10TA PO; -ENAL10TA9 PO
[2020-03-25] MEDS ORDERED: LACTATED RINGERS 1,000 ML IV SCH (07:37)
[2020-03-25] MEDS ORDERED: SPIR25TA5 PO (07:40)
[2020-03-25] MEDS ORDERED: CHLORHEXIDINE 15 ML UDC MM ONE (08:00)
[2020-03-25 08:15] VITALS: BP 129/74
[2020-03-25] MEDS ORDERED: ACETAMINOPHEN 500 MG TABLET ONE (08:26)
[2020-03-25] MEDS ORDERED: ACETAMINOPHEN 500 MG TABLET PO ONE (08:30)
[2020-03-25] MEDS ORDERED: BUPIVACAINE/PF-EPI 0.5% 1:200K ONE (08:32)
[2020-03-25] MEDS ORDERED: LIDOCAINE 1%-EPI 1:100K, 20ML ONE (08:32)
[2020-03-25] MEDS ORDERED: FENTANYL PF 250 MCG/5ML ONE (08:35)
[2020-03-25] MEDS ORDERED: HYDROCORTISONE 100 MG INJ. ONE (08:36)
[2020-03-25] MEDS ORDERED: PROPOFOL 10 MG/ML, 20ML ONE (08:38)
[2020-03-25] MEDS ORDERED: ROCURONIUM 10MG/ML,5ML ONE (08:38)
[2020-03-25] MEDS ORDERED: CEFAZOLIN 1,000 MG ONE (09:02)
[2020-03-25] MEDS ORDERED: ONDANSETRON 2MG/ML, 2ML ONE (09:02)
[2020-03-25] MEDS ORDERED: SUCCINYLCHOLINE 20 MG/ML, 10ML ONE (09:02)
[2020-03-25] MEDS ORDERED: DIAZEPAM 5 MG/ML, 2ML IVPush PRN (09:30)
[2020-03-25] MEDS ORDERED: LABETALOL 5MG/ML, 20ML IV PRN (09:30)
[2020-03-25] MEDS ORDERED: PROMETHAZINE 12.5 MG SUPP PR PRN (09:30)
[2020-03-25] MEDS ORDERED: EPHEDRINE 50 MG/ML, 1ML IVPush PRN (09:30)
[2020-03-25] MEDS ORDERED: MEPERIDINE/PF 25MG/0.5ML IVPush PRN (09:30)
[2020-03-25] MEDS ORDERED: PROMETHAZINE 25 MG/ML, 1ML IVPush PRN (09:30)
[2020-03-25] MEDS ORDERED: ONDANSETRON 2MG/ML, 2ML IVPush PRN (09:30)
[2020-03-25] MEDS ORDERED: MIDAZOLAM 1 MG/ML, 2ML IV PRN (09:30)
[2020-03-25] MEDS ORDERED: ALBUTEROL SULFATE 2.5 MG/3 ML NPPB PRN (09:30)
[2020-03-25] MEDS ORDERED: HYDROmorphone 1 MG/ML, 1ML INJ IVPush PRN (09:30)
[2020-03-25] MEDS ORDERED: hydrALAzine 20 MG/ML, 1ML IV PRN (09:30)
[2020-03-25] MEDS ORDERED: OXYcodone 5 MG/5 ML ORAL.SOL UDC PO PRN (09:30)
[2020-03-25] MEDS ORDERED: DIPHENHYDRAMINE 50 MG/ML, 1ML IVPush PRN (09:30)
[2020-03-25] MEDS ORDERED: OXYcodone 5 MG/5 ML ORAL.SOL UDC ONE (10:36)
[2020-03-25] MEDS ORDERED: FENTANYL PF 100 MCG/2ML ONE (10:36)
[2020-03-25] MEDS: FENTANYL PF 100 MCG/2ML IV PRN ×4 (10:45→11:06)
[2020-03-25] MEDS ORDERED: MIDAZOLAM 1 MG/ML, 2ML ONE (10:58)
[2020-03-25] MEDS ORDERED: ALBUTEROL HFA 90 MCG/SPRAY INH PRN (11:00)
[2020-03-25] MEDS ORDERED: HYDROmorphone 1 MG/ML, 1ML INJ ONE (11:22)
[2020-03-25] MEDS ORDERED: KETOROLAC 30 MG/1 ML ONE (12:25)
[2020-03-25] MEDS ORDERED: KETOROLAC 30 MG/1 ML IVPush ONE (12:30)
[2020-03-25] MEDS ORDERED: HYDROcodone/APAP 5/325 TABLET ONE (13:55)
[2020-03-25] MEDS ORDERED: HYDROcodone/APAP 5/325 TABLET PO PRN (14:00)
== END 2020-03-25 15:06 | disposition home or self-care (01) ==
LOC: OUT 07:08
PROVIDERS: ATTEND Orthopaedic Surgery
DX: S52.511A Displaced fracture of right radial styloid process, initial encounter for closed fracture (principal); Z11.59 Encounter for screening for other viral diseases; J45.909 Unspecified asthma, uncomplicated; I10 Essential (primary) hypertension; M85.80 Other specified disorders of bone density and structure, unspecified site; Z79.899 Other long term (current) drug therapy; W01.0XXA Fall on same level from slipping, tripping and stumbling without subsequent striking against object, initial encounter; Y93.89 Activity, other specified; Y92.091 Bathroom in other non-institutional residence as the place of occurrence of the external cause; Y99.8 Other external cause status
CPT/HCPCS: 25607; 36415; 73100; 87635; 93005; C1713; C1769; J0330; J0690; J1170; J1720; J1885; J2250; J2405; J2704; J3010; J3490; J7120

== ENCOUNTER 2020-05-19 12:02 | Emergency (ER) | payer MEDICARE ==
[~2020-05-19] VITALS: Ht 154.9 cm; Wt 54.0 kg
[~2020-05-19 12:02] MED LIST changes: -ENAL10TA PO; +ENAL10TA9 PO; +SPIR25TA5 PO
[2020-05-19] MEDS ORDERED: ACETAMINOPHEN 325 MG TABLET PO ONE (12:30)
[2020-05-19] MEDS ORDERED: DIPH,PERTUSS(ACELL),TET VAC/PF 0.5 ML IM-VACC ONE ×2 (12:30→12:54)
[2020-05-19] MEDS ORDERED: ACETAMINOPHEN 325 MG TABLET ONE (12:54)
[2020-05-19] MEDS ORDERED: L.E.T SOLUTION TP ONE ×2 (13:09→13:30)
--- NOTE | 2020-05-19 13:21 | NUR ---
Artie. PLACED ON PT'S WD.
--- NOTE | 2020-05-19 14:10 | NUR ---
TECH AT BEDSIDE TO IRRIGATE WD.
--- NOTE | 2020-05-19 14:39 | NUR ---
WD CLEANED AND DRESSED BY SOLAR THERMAL INSTALLER. KIM HINOJOSA AT BEDSIDE FOR REASSESSMENT.
[2020-05-19 15:02] VITALS: BP 137/87
--- NOTE | 2020-05-19 15:02 | NUR ---
PT D/C'D PER ORDERS, PT ANS PT'S FAMILY MEMBERS VERBALIZED UNDERSTADING OF D/C INSTRUCTIONS.
== END 2020-05-19 15:04 | disposition home or self-care (01) ==
LOC: ED 12:22
DX: L03.115 Cellulitis of right lower limb (principal); S81.811D Laceration without foreign body, right lower leg, subsequent encounter; I10 Essential (primary) hypertension; J44.9 Chronic obstructive pulmonary disease, unspecified; X58.XXXD Exposure to other specified factors, subsequent encounter
CPT/HCPCS: 12002; 90471; 90715; 99283

== ENCOUNTER → 2020-07-15 | Outpatient (CLI) | payer MEDICARE ==
[~2020-07-15] MED LIST changes: +AMLO-211 PO; -AMLO10TA8 PO; +REGADENOSON 0.4 MG/5 ML SYRINGE ONE
== END | disposition home or self-care (01) ==
LOC: CFH 08:22
PROVIDERS: ATTEND Internal Medicine Cardiovascular Disease
DX: I10 Essential (primary) hypertension (principal); R06.02 Shortness of breath; R07.89 Other chest pain
CPT/HCPCS: 78452; 93017; A9502; J2785

== ENCOUNTER → 2020-08-07 | Outpatient (CLI) | payer MEDICARE ==
[~2020-08-07] MED LIST changes: -REGADENOSON 0.4 MG/5 ML SYRINGE ONE
== END | disposition home or self-care (01) ==
LOC: CVU 11:56
PROVIDERS: ATTEND Internal Medicine Cardiovascular Disease
DX: I08.3 Combined rheumatic disorders of mitral, aortic and tricuspid valves (principal); I10 Essential (primary) hypertension; R06.02 Shortness of breath; R07.89 Other chest pain
CPT/HCPCS: 93306

== ENCOUNTER 2020-10-21 13:25 | Emergency (ER) | payer MEDICARE, OTHER ==
[~2020-10-21] VITALS: Ht 154.9 cm; Wt 54.8 kg
--- NOTE | 2020-10-21 13:51 | NUR ---
PT COMES IN C/O SOB "I FEEL LETHARGIC, HOT AND WEEK. IT FEELS LIKE THE FIRST TIME I HAD PNA". PT STATES HX OF ASTHMA/COPD/PNA. MONITORS CONNECTED. EKG COMPLETE. WARM BLANKETS PROVIDED. CALL LIGHT W/IN REACH
--- NOTE | 2020-10-21 14:36 | NUR ---
BREAK RN: ASSISTED PT TO BATHROOM, STEADY GAIT
--- NOTE | 2020-10-21 15:02 | NUR ---
PT RESTING ON GURNEY. STATES NO PAIN BUT C/O "TIGHTNESS IN MY CHEST". AWAITING MD ORDERS. CALL LIGHT W/IN REACH.
--- NOTE | 2020-10-21 15:52 | NUR ---
Dr. Posey at bedside to evaluate pt.
--- NOTE | 2020-10-21 16:02 | NUR ---
PROVIDER AT BEDSIDE FOR ASSESSMENT AND TO DISCUSS PLAN OF CARE
[2020-10-21] MEDS ORDERED: ALBUTEROL/IPRATROPIUM 2.5MG/0.5MG, 3 ML NPPB ONE (16:30)
[2020-10-21] MEDS ORDERED: SODIUM CHLORIDE FLUSH 10ML SYR IVF ONE (16:30)
[2020-10-21] MEDS ORDERED: ALBUTEROL/IPRATROPIUM 2.5MG/0.5MG, 3 ML ONE (16:32)
[2020-10-21 16:41] LABS: BASOPHILS % (AUTO) 1 % (0-1); EOSINOPHILS % (AUTO) 1 % (1-7); LYMPHOCYTES % (AUTO) 6 % (22-44); MEAN CORPUSCULAR HEMOGLOBIN 30.4 pg (27.0-34.8); MEAN CORPUSCULAR HGB CONC 33.8 g/dL (32.4-35.8); MEAN PLATELET VOLUME 8.3 fL (7.4-10.4); MONOCYTES % (AUTO) 2 % (2-9); NEUTROPHILS % (AUTO) 90 % (42-75); PLATELET COUNT 307 x10^3/uL (130-400); RED BLOOD COUNT 4.87 x10^6/uL (3.82-5.3); RED CELL DISTRIBUTION WIDTH 13.8 % (9.6-15.2)
[2020-10-21 16:46] LABS: ALANINE AMINOTRANSFERASE 33 U/L (12-78); ALBUMIN 3.6 g/dL (3.4-5.0); ANION GAP 8 mmol/L (5-15); CALCIUM 9.5 mg/dL (8.5-10.1); CHLORIDE 106 mmol/L (98-107); CREATININE 1.03 mg/dL (0.55-1.02)
--- NOTE | 2020-10-21 16:47 | NUR ---
PT RESTING ON GURNEY. ORDERED MEDICATION ADMINS. AND BREATHING TX IN PROGRESS. VSS. CALL LIGHT W/IN REACH
[2020-10-21 16:49] LABS: ALKALINE PHOSPHATASE 142 U/L (45-117); BILIRUBIN,TOTAL 0.4 mg/dL (0.2-1.0); TOTAL PROTEIN 7.2 g/dL (6.4-8.2)
[2020-10-21 17:12] LABS: MD SCAN
--- NOTE | 2020-10-21 17:32 | NUR ---
PT RESTING ON [facility]. IV ACCESS OBTAINED. WATER PROVIDED. VSS. CALL LIGHT W/IN REACH.
[2020-10-21 18:32] VITALS: BP 138/77
--- NOTE | 2020-10-21 18:33 | NUR ---
PT TO DISCHARGE VIA WHEELCHAIR. PT ENCOURAGED TO FOLLOWUP DISCUSSED. PT EDUCATED TO RETURN TO THE ED W/WORSENING SYMPTOMS. RX GIVEN
== END 2020-10-21 18:35 | disposition home or self-care (01) ==
LOC: ED 16:30
DX: J43.9 Emphysema, unspecified (principal); R06.02 Shortness of breath; R05 Cough; R07.89 Other chest pain; I45.10 Unspecified right bundle-branch block; I10 Essential (primary) hypertension
CPT/HCPCS: 36415; 71045; 80053; 85025; 93005; 94640; 99285; J7512

== ENCOUNTER 2020-12-21 21:14 | Emergency (ER) | payer MEDICARE, OTHER ==
[~2020-12-21] VITALS: Ht 154.9 cm; Wt 53.0 kg
[2020-12-21 21:16] VITALS: BP 146/86
[2020-12-21] MEDS ORDERED: LIDOCAINE-MPF 1%, 5ML ONE ×2 (21:48→21:57)
[2020-12-21] MEDS ORDERED: DIPH,PERTUSS(ACELL),TET VAC/PF 0.5 ML IM-VACC ONE ×2 (21:49→22:00)
[2020-12-21] MEDS ORDERED: LIDOCAINE/PF 2%, 2ML INFIL ONE (22:00)
[2020-12-21] MEDS ORDERED: LIDOCAINE 2%, 20ML SQ ONE (22:00)
[2020-12-22] MEDS ORDERED: ACETAMINOPHEN 500 MG TABLET ONE (00:16)
--- NOTE | 2020-12-22 00:21 | NUR ---
Patient states she is legally blind. Discharge instructions given. Explained in detail instructions. Wheeled patient out in a wheelchair. Patient states she is comfortable taking a taxi. Taxi voucher given. Belongings with patient.
[2020-12-22] MEDS ORDERED: ACETAMINOPHEN 500 MG TABLET PO ONE (00:30)
== END 2020-12-22 00:23 | disposition home or self-care (01) ==
LOC: ED 21:37
DX: S81.812A Laceration without foreign body, left lower leg, initial encounter (principal); I10 Essential (primary) hypertension; J44.9 Chronic obstructive pulmonary disease, unspecified; W18.30XA Fall on same level, unspecified, initial encounter; Y93.89 Activity, other specified; Y92.410 Unspecified street and highway as the place of occurrence of the external cause; Y99.8 Other external cause status
CPT/HCPCS: 12035; 90471; 90715; 99284

== ENCOUNTER 2021-01-03 15:01 | Inpatient (IN) | payer MEDICARE ==
[~2021-01-03] VITALS: Ht 154.9 cm; Wt 55.5 kg
--- NOTE | 2021-01-03 15:21 | NUR ---
BREAK RN: SIMÓN AFTER HAVING CONTINUTED SOB AFTER 5 HOME BREATHING TREATMENTS. PT W/ HX OF COPD. WAS EMS ARRIVED PT 87% ON RA. AFTER 125 OF SOLUMEDERAL AND DUB BREATHING TREATMENT PT NOW 96% RA. PT ATTACHED TO ALL MONITORS. VSS. PETERSEN.
--- NOTE | 2021-01-03 15:23 | NUR ---
PT RECENTLY D/C "FEW DAYS AGO, AFTER HAVING TO GET STICHES IN MY LEG WHEN I FELL"
--- NOTE | 2021-01-03 15:26 | NUR ---
REPORT GIVEN TO DOTTIE RESENDEZ.
[2021-01-03 16:36] LABS: BASOPHILS % (AUTO) 0 % (0-1); EOSINOPHILS % (AUTO) 1 % (1-7); LYMPHOCYTES % (AUTO) 4 % (22-44); MEAN CORPUSCULAR HEMOGLOBIN 30.2 pg (27.0-34.8); MEAN CORPUSCULAR HGB CONC 33.5 g/dL (32.4-35.8); MEAN PLATELET VOLUME 8.1 fL (7.4-10.4); MONOCYTES % (AUTO) 1 % (2-9); NEUTROPHILS % (AUTO) 94 % (42-75); PLATELET COUNT 298 x10^3/uL (130-400); RED BLOOD COUNT 4.61 x10^6/uL (3.82-5.3); RED CELL DISTRIBUTION WIDTH 13.6 % (9.6-15.2)
[2021-01-03 16:44] LABS: ALBUMIN 3.6 g/dL (3.4-5.0); ANION GAP 7 mmol/L (5-15); CALCIUM 9.3 mg/dL (8.5-10.1); CHLORIDE 107 mmol/L (98-107)
[2021-01-03 16:45] LABS: MD NO
[2021-01-03 16:50] LABS: ALANINE AMINOTRANSFERASE 32 U/L (12-78); ALKALINE PHOSPHATASE 129 U/L (45-117); BILIRUBIN,TOTAL 0.4 mg/dL (0.2-1.0); CREATININE 0.88 mg/dL (0.55-1.02); TROPONIN I < 0.015 ng/mL (0.000-0.045)
[2021-01-03] MEDS ORDERED: ALBUTEROL/IPRATROPIUM 2.5MG/0.5MG, 3 ML ONE ×2 (18:11)
[2021-01-03] MEDS: ALBUTEROL/IPRATROPIUM 2.5MG/0.5MG, 3 ML NPPB SCH ×2 (18:13→18:36)
--- NOTE | 2021-01-03 18:42 | NUR ---
REPORT FROM MAL SINCLAIR, PT CARE TRASNFERRED AT THIS TIME.
--- NOTE | 2021-01-03 19:04 | NUR ---
PT RESTING ON GURNEY, SATTING 93% ON RA. APPEARS COMFORTABLE, VSS, DENIES ADDITIONAL QUESTIONS OR NEEDS AT THIS TIME. BED IN LOWEST, RAILS ENGAGED, CALL LIGHT ON LAP, WCTM. CHART UP FOR RECHECK AT THIS TIME.
--- NOTE | 2021-01-03 20:00 | NUR ---
PT NAD, RESTING ON GURNEY, VSS, NO CHANGE IN CONDITION, APPEARS COMFORTABLE, PT PROVIDED SANDWICH FOR COMFORT, UPDATED ON POC. WCTM.
[2021-01-03] MEDS ORDERED: CEPHALEXIN PO (20:21)
[2021-01-03] MEDS ORDERED: LISI-167 PO (20:21)
[2021-01-03] MEDS ORDERED: PRED5TAB PO (20:23)
[2021-01-03] MEDS ORDERED: ALBUTEROL/IPRATROPIUM 2.5MG/0.5MG, 3 ML HHN PRN (20:30)
[2021-01-03] MEDS ORDERED: ACETAMINOPHEN 325 MG TABLET PO PRN (20:30)
--- NOTE | 2021-01-03 21:10 | NUR ---
REPORT CALLED TO DOTTIE ANTHONY AND NETO, PT CARE TO BE TRANSFERRED UPON ARRIVAL TO THE FLOOR. PT DARYN, VSS. NO CHANGE IN CONDITION, WCTM.
[2021-01-03 21:29] VITALS: BP 138/80
[2021-01-03] MEDS: AZITHROMYCIN 500 MG in SODIUM CHLORIDE 0.9% 250 ML IV SCH (22:29)
[2021-01-03] MEDS: ENOXAPARIN 40 MG/0.4 ML SQ SCH (22:29)
[2021-01-03] MEDS ORDERED: BUDESONIDE 0.5 MG/2 ML INHA INH SCH (22:30)
[2021-01-03 22:57] VITALS: BP 138/80
[2021-01-04 00:57] VITALS: BP 122/67
[2021-01-04] MEDS: ALBUTEROL/IPRATROPIUM 2.5MG/0.5MG, 3 ML NPPB PRN ×2 (04:25→17:22)
[2021-01-04 05:10] LABS: BASOPHILS % (AUTO) 0 % (0-1); EOSINOPHILS % (AUTO) 0 % (1-7); LYMPHOCYTES % (AUTO) 7 % (22-44); MD NO; MEAN CORPUSCULAR HEMOGLOBIN 30.9 pg (27.0-34.8); MEAN CORPUSCULAR HGB CONC 34.4 g/dL (32.4-35.8); MEAN PLATELET VOLUME 8.6 fL (7.4-10.4); MONOCYTES % (AUTO) 3 % (2-9); NEUTROPHILS % (AUTO) 90 % (42-75); PLATELET COUNT 270 x10^3/uL (130-400); RED BLOOD COUNT 4.19 x10^6/uL (3.82-5.3); RED CELL DISTRIBUTION WIDTH 13.8 % (9.6-15.2)
[2021-01-04 05:20] LABS: ALBUMIN 3.1 g/dL (3.4-5.0); CHLORIDE 107 mmol/L (98-107)
[2021-01-04 05:24] LABS: ALANINE AMINOTRANSFERASE 26 U/L (12-78); ALKALINE PHOSPHATASE 112 U/L (45-117); ANION GAP 7 mmol/L (5-15); BILIRUBIN,TOTAL 0.3 mg/dL (0.2-1.0); CALCIUM 9.3 mg/dL (8.5-10.1); CREATININE 0.85 mg/dL (0.55-1.02); TOTAL PROTEIN 6.4 g/dL (6.4-8.2)
[2021-01-04] MEDS: ALBUTEROL/IPRATROPIUM 2.5MG/0.5MG, 3 ML NPPB SCH ×4 (06:46→20:00)
[2021-01-04 07:52] VITALS: BP 116/57
[2021-01-04] MEDS: LISINOPRIL 10 MG TABLET PO SCH (08:12)
[2021-01-04] MEDS: OMEPRAZOLE 20 MG CAPSULE.DR PO SCH (08:12)
[2021-01-04] MEDS: SPIRONOLACTONE 25 MG TABLET PO SCH (08:12)
[2021-01-04] MEDS ORDERED: BUDESONIDE 0.5 MG/2 ML INHA INH SCH (09:00)
[2021-01-04] MEDS ORDERED: FLUTICASONE/VILANTEROL 200-25MCG/INH INH SCH (09:00)
[2021-01-04] MEDS: BUDESONIDE 0.5 MG/2 ML INHA NPPB SCH ×2 (11:20→20:38)
[2021-01-04 13:19] VITALS: BP 136/74
[2021-01-04 20:56] VITALS: BP 147/74
[2021-01-04] MEDS: ENOXAPARIN 40 MG/0.4 ML SQ SCH (20:57)
[2021-01-04] MEDS: AZITHROMYCIN 500 MG in SODIUM CHLORIDE 0.9% 250 ML IV SCH (22:26)
[2021-01-05] MEDS ORDERED: CALCIUM CARBONATE 500 MG TAB.CHEW PO PRN (02:00)
[2021-01-05 02:07] VITALS: BP 135/78
[2021-01-05 04:51] LABS: BASOPHILS % (AUTO) 0 % (0-1); EOSINOPHILS % (AUTO) 0 % (1-7); LYMPHOCYTES % (AUTO) 11 % (22-44); MEAN CORPUSCULAR HEMOGLOBIN 30.3 pg (27.0-34.8); MEAN CORPUSCULAR HGB CONC 33.6 g/dL (32.4-35.8); MEAN PLATELET VOLUME 8.4 fL (7.4-10.4); MONOCYTES % (AUTO) 8 % (2-9); NEUTROPHILS % (AUTO) 81 % (42-75); PLATELET COUNT 296 x10^3/uL (130-400); RED BLOOD COUNT 4.29 x10^6/uL (3.82-5.3); RED CELL DISTRIBUTION WIDTH 13.8 % (9.6-15.2)
[2021-01-05 04:56] LABS: MD NO
[2021-01-05 05:00] LABS: CALCIUM 9.5 mg/dL (8.5-10.1); CHLORIDE 108 mmol/L (98-107)
[2021-01-05 05:04] LABS: ALANINE AMINOTRANSFERASE 26 U/L (12-78); ALBUMIN 3.3 g/dL (3.4-5.0); ALKALINE PHOSPHATASE 108 U/L (45-117); ANION GAP 7 mmol/L (5-15); BILIRUBIN,TOTAL 0.4 mg/dL (0.2-1.0); CREATININE 0.85 mg/dL (0.55-1.02); TOTAL PROTEIN 6.5 g/dL (6.4-8.2)
[2021-01-05] MEDS: ALBUTEROL/IPRATROPIUM 2.5MG/0.5MG, 3 ML NPPB SCH ×2 (07:45→11:00)
[2021-01-05] MEDS: BUDESONIDE 0.5 MG/2 ML INHA NPPB SCH (07:45)
[2021-01-05 08:22] VITALS: BP 161/91
[2021-01-05] MEDS: SPIRONOLACTONE 25 MG TABLET PO SCH (08:39)
[2021-01-05] MEDS: LISINOPRIL 10 MG TABLET PO SCH (08:40)
[2021-01-05] MEDS: OMEPRAZOLE 20 MG CAPSULE.DR PO SCH (08:40)
[2021-01-05] MEDS ORDERED: AZIT500T PO (09:53)
[2021-01-05] MEDS ORDERED: PRED20TA PO (09:53)
== END 2021-01-05 11:40 | disposition home or self-care (01) | DRG 192 ==
LOC: ED 15:36 → EDIP 20:20 → 3N 21:24 → DCLOUNGE 01-05 11:23
PROVIDERS: ADMIT Family Medicine; ATTEND Internal Medicine
DX: J44.9 Chronic obstructive pulmonary disease, unspecified (principal); J43.9 Emphysema, unspecified; I10 Essential (primary) hypertension; Z87.01 Personal history of pneumonia (recurrent)
CPT/HCPCS: 36415; 71045; 80053; 83880; 84484; 85025; 93005; 94640; G0378; J0456; J1650; J7626; J7050; J7512